=== PATIENT | male | born 1940 | race Caucasian/White ===

== ENCOUNTER 2016-10-24 05:17 | Day surgery (SDC) | payer MEDICARE, BC ==
[2016-10-24] MEDS ORDERED: Dextrose 5%-0.45% NaCl 1,000 ML IV SCH (06:10)
[2016-10-24] MEDS ORDERED: fentaNYL 100 MCG/2 ML SDV ONE (06:13)
[2016-10-24] MEDS ORDERED: Midazolam 1 MG/ML 2 ML SDV ONE (06:13)
[2016-10-24] MEDS ORDERED: fentaNYL 100 MCG/2 ML SDV IV ONE ×3 (06:38→16:50)
[2016-10-24] MEDS ORDERED: Midazolam 1 MG/ML 2 ML SDV IV ONE ×5 (06:40→16:50)
--- NOTE | 2016-10-24 08:26 | OR ---
DATE: 10/24/2016 PROCEDURE: Total colonoscopy, NBI, and cold snare polypectomy. INSTRUMENT USED: CF-H180AL Olympus video colonoscope. PREMEDICATIONS: Fentanyl 100 mcg intravenous, Versed 3 mg intravenous. Nasal 2 L O2 cannula. The procedure was done under pulse oximetry, BP recording, and roll icer. INDICATION: Screening colonoscopic examination is done for detection of any polypoid lesions and removal, endoscopic hemostasis therapy if needed. DESCRIPTION OF PROCEDURE: Initial rectal exam was unremarkable. Rigid anoscopy was normal. The colonoscope was passed with ease to the ileocecal area, photographs were taken of the normal-appearing cecum, identified by double- bulged ileocecal folds. No bleeding was noted from any of the visualized areas at the commencement of the examination. Significant amount of biliary secretions were noted. No stricture, no vascular ectasia, no large isolated ulceration seen. No evidence of diffuse inflammatory bowel disease in the form of friability, contact bleeding, or ulcerations. Probing the proximal sides of folds and flexures using adequate distention and clearing up the stool material, withdrawal of the scope was made. In the proximal sigmoid colon, a 5 mm sized benign-appearing polyp was noted, NBI views were taken, photographs were obtained, cold snare polypectomy was done, the tissue was retrieved and sent for histopathology. No bleeding was noted from any of the visualized areas at the completion of examination. IMPRESSION: Sigmoid colon polyp. The patient tolerated the procedure well. [facility] /[id number]
[2016-10-24 09:10] VITALS: BP 113/86
== END 2016-10-24 09:06 | disposition home or self-care (01) ==
LOC: DL.ENDO 05:17
PROVIDERS: ATTEND Internal Medicine Gastroenterology
DX: D12.5 Benign neoplasm of sigmoid colon (principal); I10 Essential (primary) hypertension; E66.9 Obesity, unspecified; J45.909 Unspecified asthma, uncomplicated; E78.5 Hyperlipidemia, unspecified; R73.9 Hyperglycemia, unspecified; Z98.890 Other specified postprocedural states; Z79.82 Long term (current) use of aspirin; Z79.899 Other long term (current) drug therapy; Z86.73 Personal history of transient ischemic attack (TIA), and cerebral infarction without residual deficits
CPT/HCPCS: 45385; J2250; J3010; J7042; 88305

== ENCOUNTER 2018-08-18 09:40 | Emergency (ER) | payer MEDICARE, BC ==
[2018-08-18 09:51] VITALS: BP 155/42
[2018-08-18] MEDS ORDERED: diphenhydrAMINE 50 MG/ML SDV IM ONE (10:04)
--- NOTE | 2018-08-18 10:09 | EDM.PDOC ---
ED HPI GENERAL MEDICAL PROBLEM - General Chief Complaint: Skin Complaint Stated Complaint: NOT SURE IF RASH, OR SHINGLES Time Seen by Provider: 08/18/18 10:00 Source of Information: Reports: Patient History Limitations: Reports: No Limitations - History of Present Illness INITIAL COMMENTS - FREE TEXT/NARRATIVE: This 78 yo male patient reports to the ED with a rash on his face, chest, bilateral shoulders and upper abdomen. The patient reports his rash on his face started after using a face cream for skin cancer, but has been getting worse. The patient reports his provider prescribed him cortisone cream which made the rash worse. Onset: Today Duration: Constant Location: Reports: Face, Neck, Chest, Abdomen Quality: Reports: Burning, Dull Severity: Moderate Improves with: Reports: None Worsens with: Reports: None Associated Symptoms: Reports: No Other Symptoms - Related Data Allergies Allergy/AdvReac Type Severity Reaction Status Date / Time calcium Allergy Itching Verified 08/18/18 09:52 Home Meds: Home Meds Albuterol [Proventil HFA] 2 puff PO Q4H PRN 07/15/15 [History] Aspirin/Calcium Carbonate/Mag [Aspirin Buffered 325 mg Tab] 325 mg PO DAILY [History] Doxazosin Mesylate [Cardura] 1 mg PO DAILY 07/15/15 [History] Finasteride [Proscar] 5 mg PO DAILY 07/15/15 [History] Formoterol Fumarate [Foradil] 12 mcg PO DAILY 07/15/15 [History] [place]-3 Acid Ethyl Esters [Lovaza] 1 cap PO BID 07/15/15 [History] Pravastatin [Pravachol] 30 mg PO DAILY 07/15/15 [History] amLODIPine [Norvasc] 10 mg PO DAILY 07/15/15 [History] Indacaterol/Glycopyrrolate [Utibron Neohaler 27.5-15.6 Mcg] 1 dose INH ASDIRECTED 10/21/16 [History] Past Medical History HEENT History: Reports: Cataract Cardiovascular History: Reports: High Cholesterol, Hypertension Other Cardiovascular History: CAROTID ARTERY DISEASE Respiratory History: Reports: Asthma Gastrointestinal History: Reports: None Genitourinary History: Reports: BPH Musculoskeletal History: Reports: None Neurological History: Reports: Other (See Below) Other Neuro History: Occationally severe headaches Psychiatric History: Reports: None Endocrine/Metabolic History: Reports: None Hematologic History: Reports: None Immunologic History: Reports: None Oncologic (Cancer) History: Reports: Basal Cell Carcinoma Dermatologic History: Reports: Other (See Below) Other Dermatologic History: Dry skin - Infectious Disease History Infectious Disease History: Reports: Chicken Pox, Measles, Mumps - Past Surgical History HEENT Surgical History: Reports: Other (See Below) GI Surgical History: Reports: Hernia Repair/Other Male Surgical History: Reports: Other (See Below) Social & Family History - Family History Family Medical History: Noncontributory - Caffeine Use Caffeine Use: Reports: Coffee, Tea ED ROS GENERAL - Review of Systems Review Of Systems: ROS reveals no pertinent complaints other than HPI. ED EXAM, SKIN/RASH Exam: See Below Exam Limited By: No Limitations General Appearance: Alert, WD/WN, Moderate Distress Eye Exam: Bilateral Eye: EOMI, Normal Inspection, PERRL Ears: Normal External Exam, Normal Canal, Hearing Grossly Normal, Normal TMs Nose: Normal Inspection, Normal Mucosa, No Blood Throat/Mouth: Normal Inspection, Normal Lips, Normal Teeth, Normal Gums, Normal Oropharynx, Normal Voice, No Airway Compromise Head: Other (see derm below) Neck: Supple, Non-Tender, Other (see derm below) Respiratory/Chest: No Respiratory Distress, Lungs Clear, Normal Breath Sounds, No Accessory Muscle Use, Chest Non-Tender Cardiovascular: Normal Peripheral Pulses, Regular Rate, Rhythm, No Edema, No Gallop, No JVD, No Murmur, No Rub GI/Abdominal: Normal Bowel Sounds, Soft, Non-Tender, No Organomegaly, No Distention, No Abnormal Bruit, No Mass (Male) Exam: Deferred Rectal (Males) Exam: Deferred Back Exam: Normal Inspection Neurological: Alert, Oriented, CN II-XII Intact, Normal Cognition, Normal Gait, Normal Reflexes, No Motor/Sensory Deficits Psychiatric: Normal Affect, Normal Mood Skin: Rash Location, Skin: Face, Neck, Chest, Abdomen, Back (bilateral shoulders) Characteristics: Patchy, Erythematous Associated features: Warmth, Inflammation. No: Crusting, Weeping Lymphatic: No Adenopathy Course - Vital Signs Last Recorded V/S: Last Vital Signs Temp 36.9 C 08/18/18 09:45 Pulse 54 L 08/18/18 09:45 Resp 18 08/18/18 09:45 BP 155/42 H 02/23/19 09:45 Pulse Ox 98 08/18/18 09:45 - Orders/Labs/Meds Meds: Medications Discontinued Medications Generic Name Dose Route Start Last Admin Trade Name Abena PRN Reason Stop Dose Admin Diphenhydramine HCl 50 mg 08/18/18 10:04 08/18/18 10:10 Benadryl IM 08/18/18 10:05 50 mg ONETIME ONE Administration Departure - Departure Time of Disposition: 10:05 Disposition: Home, Self-Care 01 Condition: Fair Clinical Impression: Allergic dermatitis - Discharge Information *PRESCRIPTION DRUG MONITORING PROGRAM REVIEWED*: Not Applicable *COPY OF PRESCRIPTION DRUG MONITORING REPORT IN PATIENT ROXANA: Not Applicable Instructions: Contact Dermatitis, [id number] Forms: ED Department Discharge Care Plan Goals: The patient was advised of the examination results during the visit. The patient was given an injection of Benadryl while in the ED. The patient was encouraged to take oral Benadryl (25 mg) every 6 hours over the next 48 hours. The patient was encouraged to use Aquaphor ointment ([id number] ointment) to keep moisture in his skin. If the patient has any additional symptoms or concerns, the patient was encouraged to either return to the emergency department or visit his primary care facility.
== END 2018-08-18 10:18 | disposition home or self-care (01) ==
LOC: DL.ED 09:40
DX: L23.3 Allergic contact dermatitis due to drugs in contact with skin (principal); T49.0X5A Adverse effect of local antifungal, anti-infective and anti-inflammatory drugs, initial encounter; I10 Essential (primary) hypertension; J45.909 Unspecified asthma, uncomplicated; Z91.018 Allergy to other foods; Z79.82 Long term (current) use of aspirin; Z79.899 Other long term (current) drug therapy
CPT/HCPCS: 96372; 99282; J1200

== ENCOUNTER 2018-11-15 14:43 | Emergency (ER) | payer MEDICARE, BC ==
[2018-11-15 14:53] VITALS: BP 159/72
--- NOTE | 2018-11-15 15:27 | EDM.PDOC ---
ED HPI GENERAL MEDICAL PROBLEM - General Chief Complaint: Laceration Stated Complaint: CUT BOTH HANDS AND FACE Time Seen by Provider: 11/15/18 14:50 Source of Information: Reports: Patient History Limitations: Reports: No Limitations - History of Present Illness INITIAL COMMENTS - FREE TEXT/NARRATIVE: This 78 yo male patient reports to the ED with lacerations to both hands and to the right side of his face. The patient reports he was working on a garage door spring when the spring got away from him. The patient had the wounds covered with paper towels upon presentation in the ED with the bleeding controlled. Onset: Today Duration: Minutes: Location: Reports: Face, Upper Extremity, Left, Upper Extremity, Right Quality: Reports: Other Severity: Moderate Improves with: Reports: None Worsens with: Reports: None Context: Reports: Trauma Associated Symptoms: Reports: No Other Symptoms - Related Data Allergies Allergy/AdvReac Type Severity Reaction Status Date / Time calcium Allergy Itching Verified 11/15/18 14:52 Home Meds: Home Meds Albuterol [Proventil HFA] 2 puff PO Q4H PRN 07/15/15 [History] Aspirin/Calcium Carbonate/Mag [Aspirin Buffered 325 mg Tab] 325 mg PO DAILY [History] Doxazosin Mesylate [Cardura] 1 mg PO DAILY 07/15/15 [History] Finasteride [Proscar] 5 mg PO DAILY 07/15/15 [History] Formoterol Fumarate [Foradil] 12 mcg PO DAILY 07/15/15 [History] [place]-3 Acid Ethyl Esters [Lovaza] 1 cap PO BID 07/15/15 [History] Pravastatin [Pravachol] 30 mg PO DAILY 07/15/15 [History] amLODIPine [Norvasc] 10 mg PO DAILY 07/15/15 [History] Indacaterol/Glycopyrrolate [Utibron Neohaler 27.5-15.6 Mcg] 1 dose INH ASDIRECTED 10/21/16 [History] Past Medical History HEENT History: Reports: Cataract Cardiovascular History: Reports: High Cholesterol, Hypertension Other Cardiovascular History: CAROTID ARTERY DISEASE Respiratory History: Reports: Asthma Gastrointestinal History: Reports: None Genitourinary History: Reports: BPH Musculoskeletal History: Reports: None Neurological History: Reports: Other (See Below) Other Neuro History: Occationally severe headaches Psychiatric History: Reports: None Endocrine/Metabolic History: Reports: None Hematologic History: Reports: None Immunologic History: Reports: None Oncologic (Cancer) History: Reports: Basal Cell Carcinoma Dermatologic History: Reports: Other (See Below) Other Dermatologic History: Dry skin - Infectious Disease History Infectious Disease History: Reports: Chicken Pox, Measles, Mumps - Past Surgical History Head Surgeries/Procedures: Reports: None HEENT Surgical History: Reports: Other (See Below) GI Surgical History: Reports: Hernia Repair/Other Social & Family History - Family History Family Medical History: Noncontributory - Tobacco Use Smoking Status *Q: Never Smoker Second Hand Smoke Exposure: No - Caffeine Use Caffeine Use: Reports: Coffee, Tea - Recreational Drug Use Recreational Drug Use: No ED ROS GENERAL - Review of Systems Review Of Systems: ROS reveals no pertinent complaints other than HPI. ED EXAM, SKIN/RASH Exam: See Below Exam Limited By: No Limitations General Appearance: Alert, WD/WN, No Apparent Distress Eye Exam: Bilateral Eye: EOMI, Normal Inspection, PERRL Ears: Normal External Exam, Normal Canal, Hearing Grossly Normal, Normal TMs Nose: Normal Inspection, Normal Mucosa, No Blood Throat/Mouth: Normal Inspection, Normal Lips, Normal Teeth, Normal Gums, Normal Oropharynx, Normal Voice, No Airway Compromise Head: Other (small abrasion to the right side of the patient's face) Neck: Normal Inspection, Supple, Non-Tender, Full Range of Motion Respiratory/Chest: No Respiratory Distress, Lungs Clear, Normal Breath Sounds, No Accessory Muscle Use, Chest Non-Tender Cardiovascular: Normal Peripheral Pulses, Regular Rate, Rhythm, No Edema, No Gallop, No JVD, No Murmur, No Rub GI/Abdominal: Normal Bowel Sounds, Soft, Non-Tender, No Organomegaly, No Distention, No Abnormal Bruit, No Mass (Male) Exam: Deferred Rectal (Males) Exam: Deferred Back Exam: Normal Inspection, Full Range of Motion, NT Extremities: Arm Pain (bilateral lacerations as described below) Neurological: Alert, Oriented, CN II-XII Intact, Normal Cognition, Normal Gait, Normal Reflexes, No Motor/Sensory Deficits Psychiatric: Normal Affect, Normal Mood Skin: Wound/Incision Location, Skin: Upper Extremity, Right (laceration to the right thumb base, and between the right 1st and 2nd fingers. Laceration to the left hand near the base of his thumb) Characteristics: Other Lymphatic: No Adenopathy ED SKIN PROCEDURES - Laceration/Wound Repair Left Digit - 1st (Thumb) Lac/Wound length In cm: 3.0 Appearance: Subcutaneous Distal NVT: Neuro & Vascular Intact Anesthetic Type: Local Local Anesthesia - Lidocaine (Xylocaine): 1% Plain Local Anesthetic Volume: 3cc Skin Prep: Chlorhexidine (Hibiciens), Saline Exploration/Debridement/Repair: Wound Explored, In a Bloodless Field, Foreign Material Removed Closed with: Sutures Suture Size: 4-0 # of Sutures: 7 Suture Type: Prolene, Interrupted, Simple Drain Placement: No Sterile Dressing Applied: Nurse Tetanus Status Addressed: Yes Complications: No Right Digit - 1st (Thumb) Lac/Wound length In cm: 3.0 Appearance: Subcutaneous Distal NVT: Neuro & Vascular Intact Anesthetic Type: Local Local Anesthesia - Lidocaine (Xylocaine): 1% Plain Local Anesthetic Volume: 3cc Skin Prep: Chlorhexidine (Hibiciens), Saline Exploration/Debridement/Repair: Wound Explored, In a Bloodless Field, No Foreign Material Found Closed with: Sutures Suture Size: 4-0 # of Sutures: 9 Suture Type: Prolene, Interrupted, Simple Drain Placement: No Sterile Dressing Applied: Nurse Tetanus Status Addressed: Yes Complications: No Right Hand Lac/Wound length In cm: 6.5 Appearance: Subcutaneous, Irregular Distal NVT: Neuro & Vascular Intact Anesthetic Type: Local Local Anesthesia - Lidocaine (Xylocaine): 1% Plain Local Anesthetic Volume: 4cc Skin Prep: Chlorhexidine (Hibiciens), Saline Exploration/Debridement/Repair: Wound Explored, No Foreign Material Found Closed with: Sutures Suture Size: 4-0 # of Sutures: 13 Suture Type: Prolene, Interrupted, Simple Drain Placement: No Sterile Dressing Applied: Nurse Tetanus Status Addressed: Yes Complications: No Course - Vital Signs Last Recorded V/S: Last Vital Signs Temp 37.3 C 11/15/18 14:47 Pulse 65 11/15/18 14:47 Resp 18 11/15/18 14:47 BP 159/72 H 11/15/18 14:47 Pulse Ox 97 11/15/18 14:47 - Orders/Labs/Meds Orders: Active Orders 24 hr Category Date Time Status Vaccines to be Administered [RC] PER UNIT ROUTINE Care 11/15/18 16:36 Ordered Diphth,Pertuss(Acell),Tet Vac [Adacel] Med 11/15/18 16:36 Once 0.5 ml IM .ONCE ONE Medication Orders Diphtheria/Tetanus/Acell Pertussis (Adacel) 0.5 ml IM .ONCE ONE Stop: 11/15/18 16:37 Meds: Medications Generic Name Dose Route Start Last Admin Trade Name Freq PRN Reason Stop Dose Admin Diphtheria/Tetanus/Acell Pertussis 0.5 ml 11/15/18 16:36 Adacel IM 11/15/18 16:37 .ONCE ONE Discontinued Medications Generic Name Dose Route Start Last Admin Trade Name Freq PRN Reason Stop Dose Admin Bacitracin 1 dose 11/15/18 15:31 11/15/18 15:34 Bacitracin Oint 1 Gm TOP 11/15/18 15:32 1 dose ONETIME ONE Administration Lidocaine HCl 30 ml 11/15/18 15:31 11/15/18 15:34 Xylocaine-Mpf 1% INJECT 11/15/18 15:32 30 ml ONETIME ONE Administration Departure - Departure Time of Disposition: 16:42 Disposition: Home, Self-Care 01 Condition: Fair Clinical Impression: Laceration - Discharge Information *PRESCRIPTION DRUG MONITORING PROGRAM REVIEWED*: Not Applicable *COPY OF PRESCRIPTION DRUG MONITORING REPORT IN PATIENT ROXANA: Not Applicable Instructions: Laceration Care, Adult, [id number], Stitches, Assawoman, or Adhesive Wound Closure, [id number] Forms: ED Department Discharge Care Plan Goals: The patient was advised of the examination and x-ray results during the visit. The laceration margins were well approximated during the visit. The patient should keep the area clean and dry over the next 24 hours. The patient should have the sutures removed in about 14 days. The patient was discharged with a script for Keflex (500 mg) to take 1 by mouth 3 times per day for 14 days. If the patient has any additional symptoms or concerns, the patient should either return to the emergency department or follow-up with his primary care facility. - My Orders Last 24 Hours: My Active Orders 11/15/18 16:36 Vaccines to be Administered [RC] PER UNIT ROUTINE Diphth,Pertuss(Acell),Tet Vac [Adacel] 0.5 ml IM .ONCE ONE - Assessment/Plan Last 24 Hours: My Active Orders 11/15/18 16:36 Vaccines to be Administered [RC] PER UNIT ROUTINE Diphth,Pertuss(Acell),Tet Vac [Adacel] 0.5 ml IM .ONCE ONE
[2018-11-15] MEDS: Lidocaine 1% 30 ML SDV INJECT ONE (15:34)
[2018-11-15] MEDS: Bacitracin Oint 1 GM U/D Packet TOP ONE (15:34)
--- NOTE | 2018-11-15 16:25 | CR ---
Clinical history: 78-year-old male injured hands (garage door spring). Pain. Interpretation: 3 views each hand confirm chronic osteoarthritic degenerative changes primarily involving the first carpal metacarpal, first/third/fourth/fifth metacarpophalangeal and all interphalangeal/DIP joints both hands. Wrist right left forearm and tiny metallic foreign body in the soft tissues adjacent to the IP joint left ring finger. Chronic arthritic changes radiocarpal joints both wrists. No sign of fracture or dislocation either hand or wrist.
[2018-11-15] MEDS: Diphtheria,Pertussis(Acell),Tetanus Vaccine 0.5 ML SDV IM ONE (16:49)
== END 2018-11-15 16:55 | disposition home or self-care (01) ==
LOC: DL.ED 14:43
DX: S61.012A Laceration without foreign body of left thumb without damage to nail, initial encounter (principal); S61.011A Laceration without foreign body of right thumb without damage to nail, initial encounter; S61.411A Laceration without foreign body of right hand, initial encounter; S00.81XA Abrasion of other part of head, initial encounter; Z23 Encounter for immunization; I10 Essential (primary) hypertension; E78.00 Pure hypercholesterolemia, unspecified; Z85.828 Personal history of other malignant neoplasm of skin; Z79.82 Long term (current) use of aspirin; Z79.899 Other long term (current) drug therapy; Z91.09 Other allergy status, other than to drugs and biological substances; W22.8XXA Striking against or struck by other objects, initial encounter
CPT/HCPCS: 12004; 73130; 90471; 90715; 99283; J2001; 12042

== ENCOUNTER 2021-09-23 05:58 | Day surgery (SDC) | payer MEDICARE, BC ==
[2021-09-23] MEDS ORDERED: Midazolam 1 MG/ML 2 ML SDV IV ONE ×3 (05:59→07:03)
[2021-09-23] MEDS ORDERED: fentaNYL 100 MCG/2 ML SDV IV ONE ×3 (05:59→07:01)
[2021-09-23] MEDS ORDERED: fentaNYL 100 MCG/2 ML SDV ONE (06:12)
[2021-09-23] MEDS ORDERED: Midazolam 1 MG/ML 2 ML SDV ONE (06:12)
[2021-09-23] MEDS ORDERED: Dextrose 5%-0.45% NaCl 1,000 ML IV SCH (10:15)
[2021-09-23 12:40] VITALS: BP 104/44; PULSE 47
== END 2021-09-23 09:50 | disposition home or self-care (01) ==
LOC: DL.ENDO 05:58 → EEVIPCON 08:30 → DL.ENDO 09:50
PROVIDERS: ATTEND Internal Medicine Gastroenterology
DX: R10.13 Epigastric pain (principal); E66.09 Other obesity due to excess calories; I10 Essential (primary) hypertension; E78.5 Hyperlipidemia, unspecified; R73.9 Hyperglycemia, unspecified; Z86.73 Personal history of transient ischemic attack (TIA), and cerebral infarction without residual deficits; Z98.890 Other specified postprocedural states; Z88.8 Allergy status to other drugs, medicaments and biological substances; Z90.49 Acquired absence of other specified parts of digestive tract; Z68.28 Body mass index [BMI] 28.0-28.9, adult
CPT/HCPCS: 43239; 87077; J2250; J3010; J7042

== ENCOUNTER 2021-10-12 05:26 | Day surgery (SDC) | payer MEDICARE, BC ==
[~2021-10-12 05:26] MED LIST: Dextrose 5%-0.45% NaCl 1,000 ML IV SCH; Sodium Chloride 0.9% 10 ML Syringe FLUSH PRN; Sodium Chloride 0.9% 10 ML Syringe FLUSH SCH
[2021-10-12] MEDS ORDERED: fentaNYL 100 MCG/2 ML SDV IV ONE ×3 (05:27→06:37)
[2021-10-12] MEDS ORDERED: Midazolam 1 MG/ML 2 ML SDV IV ONE ×4 (05:27→06:44)
[2021-10-12] MEDS ORDERED: Dextrose 5%-0.45% NaCl 1,000 ML IV SCH (06:00)
[2021-10-12] MEDS ORDERED: Sodium Chloride 0.9% 10 ML Syringe FLUSH PRN (06:00)
[2021-10-12] MEDS ORDERED: Midazolam 1 MG/ML 2 ML SDV ONE (06:00)
[2021-10-12] MEDS ORDERED: fentaNYL 100 MCG/2 ML SDV ONE (06:00)
[2021-10-12] MEDS ORDERED: Sodium Chloride 0.9% 10 ML Syringe FLUSH SCH (09:00)
[2021-10-12 09:59] VITALS: BP 150/93; PULSE 54
== END 2021-10-12 08:59 | disposition home or self-care (01) ==
LOC: DL.ENDO 05:26
PROVIDERS: ATTEND Internal Medicine Gastroenterology
DX: K57.30 Diverticulosis of large intestine without perforation or abscess without bleeding (principal); K59.00 Constipation, unspecified; E66.09 Other obesity due to excess calories; I10 Essential (primary) hypertension; E78.5 Hyperlipidemia, unspecified; R73.9 Hyperglycemia, unspecified; Z88.8 Allergy status to other drugs, medicaments and biological substances; Z98.890 Other specified postprocedural states; Z90.49 Acquired absence of other specified parts of digestive tract; Z01.812 Encounter for preprocedural laboratory examination; Z20.822 Contact with and (suspected) exposure to COVID-19
CPT/HCPCS: 45378; J2250; J3010; J7042; U0002

== ENCOUNTER 2023-09-27 10:45 | Emergency (ER) | payer MEDICARE, BC ==
[2023-09-27 11:01] VITALS: BP 163/92; PULSE 72
[2023-09-27] MEDS: Silver Nitrate Applicator Each TOP ONE (11:05)
== END 2023-09-27 11:24 | disposition home or self-care (01) ==
LOC: DL.ED 10:45
DX: R04.0 Epistaxis (principal); I10 Essential (primary) hypertension; E78.00 Pure hypercholesterolemia, unspecified; J44.89 Other specified chronic obstructive pulmonary disease; Z90.49 Acquired absence of other specified parts of digestive tract; Z79.51 Long term (current) use of inhaled steroids; Z79.82 Long term (current) use of aspirin; Z88.1 Allergy status to other antibiotic agents; Z88.8 Allergy status to other drugs, medicaments and biological substances; Z79.899 Other long term (current) drug therapy
CPT/HCPCS: 30901; 99282; 99283-25

== ENCOUNTER 2023-09-30 09:21 | Emergency (ER) | payer MEDICARE, BC ==
[2023-09-30 09:48] VITALS: BP 135/82
[2023-09-30] MEDS: Oxymetazoline 0.05% Nasal Spray 30 ML Bottle NAS ONE (09:51)
== END 2023-09-30 09:59 | disposition home or self-care (01) ==
LOC: DL.ED 09:21
DX: R04.0 Epistaxis (principal); I10 Essential (primary) hypertension; E78.00 Pure hypercholesterolemia, unspecified; J44.89 Other specified chronic obstructive pulmonary disease; Z88.8 Allergy status to other drugs, medicaments and biological substances; Z88.1 Allergy status to other antibiotic agents; Z90.49 Acquired absence of other specified parts of digestive tract; Z79.51 Long term (current) use of inhaled steroids; Z79.82 Long term (current) use of aspirin; Z79.899 Other long term (current) drug therapy
CPT/HCPCS: 99283; A9270